=== PATIENT | male | born 1995 | race Caucasian/White ===

== ENCOUNTER → 2016-08-22 | Outpatient (CLI) | payer BC ==
--- NOTE | 2016-08-22 17:46 | DI ---
EXAM: MRI LUMBAR SPINE W/O CONTRAST LOCATION OF DICTATION: [facility] HISTORY: ITS.REASON: M54.5 LOW BACK PAIN COMPARISON: No prior studies available for comparison. TECHNIQUE: Multiple contiguous axial and sagittal MRI images and sequences were obtained of the lumbar spine without contrast. FINDINGS: There is preservation of lumbar lordosis. There is no evidence for subluxation. There are no acute fractures. The vertebral body height is maintained. There is a nonspecific 1.9 x 1.4 cm T2 hyperintense and T1 heterogeneous structure within the right posterior vertebral body of L1 vertebra. This structure does not have typical signal characteristics for a hemangioma. A lipid poor hemangioma is a consideration. There is loss of disc space height and signal noted at the L1-2 and L5-S1 levels. The remaining intervertebral disc space height and signal is maintained. The prevertebral and paraspinal soft tissues are within normal limits. The conus medullaris extends to the L1 level. Nonspecific increased T1/T2 signal demonstrated within the right pedicle of L5 vertebra without evidence for pars defect. Segmental analysis: At the L1-2 level there is mild disc bulge. There is no significant central spinal or neuroforaminal stenosis. At the L2-L3 level there is no significant central spinal or neuroforaminal stenosis. At the L3-L4 level there is no significant central spinal or neuroforaminal stenosis. At the L4-5 level there is no significant central spinal or neuroforaminal stenosis. At the L5-S1 level there is a broad-based disc bulge causing flattening of the ventral thecal sac. There is mild central canal narrowing and mild to moderate bilateral neuroforaminal narrowing. IMPRESSION: 1. Normal alignment to the lumbar spine. No fracture or subluxation. After two at the L5-S1 level there is mild to moderate bilateral neuroforaminal narrowing and mild central canal narrowing secondary to 2. At the L5-S1 level there is broad-based disc bulge with mild central canal and mild to moderate bilateral neuroforaminal narrowing suggested. 3. Increased signal within the right posterior body of L1 vertebra. Leading consideration is an atypical hemangioma. A CT scan could be utilized to further evaluate. .
== END ==
LOC: IMA 13:34
PROVIDERS: ATTEND Family Medicine Sports Medicine
DX: M51.26 Other intervertebral disc displacement, lumbar region (principal); M51.27 Other intervertebral disc displacement, lumbosacral region; R93.7 Abnormal findings on diagnostic imaging of other parts of musculoskeletal system

== ENCOUNTER → 2016-08-28 | Outpatient (CLI) | payer BC ==
[2016-08-28 10:30] LABS: CREATININE 1.2 MG/DL (0.8-1.5)
--- NOTE | 2016-08-28 11:17 | DI ---
Indication: ITS.REASON: R93.7 Abnormal findings on diagnostic imaging of other parts of m PROCEDURE: CT LUMBAR SPINE W/O CONTRAST: Encounter: Initial Comparison: MRI lumbar spine dated August 22, 2016 Technique: Axial noncontrast CT imaging of the lumbar spine was performed with coronal and sagittal two-dimensional reformats. Three-dimensional surface shaded volume rendered imaging was also created and reviewed. Automated Exposure Control and Iterative Reconstruction dose reducing techniques were utilized. FINDINGS: The alignment of the lumbar spine is normal for the patient's age. There is a benign 1.6 cm hemangioma within the right posterior aspect of L2 as suggested on the MRI. The lesion was incorrectly described as being within the L1 vertebra on the MRI report. Small Schmorl's node within the posterior aspect of L1. No other bony lesions identified. No acute fracture. Mild degenerative disk disease is described in more detail on the MRI report. No fractures or traumatic subluxation of the lumbar spine is evident. The facet joints are well aligned. The paraspinal soft tissues and spinal canal are otherwise unremarkable in appearance. IMPRESSION: Benign hemangioma in the L2 vertebra which does not require further imaging follow-up. Otherwise essentially negative CT. .
== END ==
LOC: IMA 10:02
PROVIDERS: ATTEND Family Medicine Sports Medicine
DX: D18.09 Hemangioma of other sites (principal); R93.7 Abnormal findings on diagnostic imaging of other parts of musculoskeletal system
CPT/HCPCS: 36415; 82565; 84520